=== PATIENT | female | born 1945 | race African-American/Black ===

== ENCOUNTER → 2016-10-15 | Outpatient (CLI) | payer MEDICARE, OTHER ==
[~2016-10-15] VITALS: Ht 152.4 cm; Wt 65.0 kg
[~2016-10-15] MED LIST: ALBU8HFA IH; ATOR20TA86 PO; BIMA12.5OS OU; CARV25 PO; DIGO250T73 PO; FURO40 PO; GLIP10TA9 PO; LETR2.5 PO; LISI-662 PO; METF850T2 PO; OMEP20 PO; POTA10TA10 PO; TIOT185 IH
[2016-10-15 11:16] VITALS: BP 149/70
== END | disposition home or self-care (01) ==
LOC: SRCNTR 11:11
PROVIDERS: ATTEND Internal Medicine Cardiovascular Disease
DX: I12.9 Hypertensive chronic kidney disease with stage 1 through stage 4 chronic kidney disease, or unspecified chronic kidney disease (principal); N18.3 Chronic kidney disease, stage 3 (moderate); E11.9 Type 2 diabetes mellitus without complications; E78.5 Hyperlipidemia, unspecified; I42.0 Dilated cardiomyopathy; Z85.3 Personal history of malignant neoplasm of breast
CPT/HCPCS: 93005; G0463

== ENCOUNTER → 2016-10-25 | Outpatient (CLI) | payer MEDICARE, OTHER | END | disposition home or self-care (01) | LOC: RADPV 09:33 | PROVIDERS: ATTEND Internal Medicine Cardiovascular Disease | DX: I42.9 Cardiomyopathy, unspecified (principal) | CPT/HCPCS: 93306 ==

== ENCOUNTER → 2016-12-14 | Outpatient (CLI) | payer MEDICARE, OTHER ==
[~2016-12-14] VITALS: Ht 152.4 cm; Wt 65.0 kg
[2016-12-14 11:20] VITALS: BP 144/60
== END | disposition home or self-care (01) ==
LOC: SRCNTR 10:53
PROVIDERS: ATTEND Internal Medicine Cardiovascular Disease
DX: I12.9 Hypertensive chronic kidney disease with stage 1 through stage 4 chronic kidney disease, or unspecified chronic kidney disease (principal); N18.3 Chronic kidney disease, stage 3 (moderate); I42.0 Dilated cardiomyopathy; E11.9 Type 2 diabetes mellitus without complications; E78.5 Hyperlipidemia, unspecified; Z85.3 Personal history of malignant neoplasm of breast
CPT/HCPCS: G0463

== ENCOUNTER → 2017-02-13 | Outpatient (CLI) | payer MEDICARE, OTHER ==
[~2017-02-13] VITALS: Ht 154.9 cm; Wt 65.0 kg
[2017-02-13 10:50] VITALS: BP 137/77
== END | disposition home or self-care (01) ==
LOC: SRCNTR 10:38
PROVIDERS: ATTEND Internal Medicine Cardiovascular Disease
DX: J44.9 Chronic obstructive pulmonary disease, unspecified (principal); I12.9 Hypertensive chronic kidney disease with stage 1 through stage 4 chronic kidney disease, or unspecified chronic kidney disease; N18.3 Chronic kidney disease, stage 3 (moderate); E78.5 Hyperlipidemia, unspecified; E11.9 Type 2 diabetes mellitus without complications; I42.0 Dilated cardiomyopathy; Z85.3 Personal history of malignant neoplasm of breast
CPT/HCPCS: G0463

== ENCOUNTER → 2017-05-08 | Outpatient (CLI) | payer MEDICARE, OTHER ==
[~2017-05-08] VITALS: Ht 154.9 cm; Wt 64.0 kg
[~2017-05-08] MED LIST changes: +INFLUENZA VIRUS VACCINE QVS 2017-18 (3YR+)/PF 60 MCG/0.5 ML SYRINGE IM ONE
[2017-05-08 10:45] VITALS: BP 136/73
== END | disposition home or self-care (01) ==
LOC: SRCNTR 10:12
PROVIDERS: ATTEND Internal Medicine Cardiovascular Disease
DX: E11.22 Type 2 diabetes mellitus with diabetic chronic kidney disease (principal); I12.9 Hypertensive chronic kidney disease with stage 1 through stage 4 chronic kidney disease, or unspecified chronic kidney disease; N18.3 Chronic kidney disease, stage 3 (moderate); E78.5 Hyperlipidemia, unspecified; I42.0 Dilated cardiomyopathy; Z85.3 Personal history of malignant neoplasm of breast
CPT/HCPCS: 90471 ×2; 96372; G0463

== ENCOUNTER → 2017-07-17 | Outpatient (CLI) | payer MEDICARE, OTHER ==
[~2017-07-17] VITALS: Ht 154.9 cm; Wt 63.5 kg
[~2017-07-17] MED LIST changes: -INFLUENZA VIRUS VACCINE QVS 2017-18 (3YR+)/PF 60 MCG/0.5 ML SYRINGE IM ONE; -LETR2.5 PO
[2017-07-17 10:33] VITALS: BP 126/61
== END | disposition home or self-care (01) ==
LOC: SRCNTR 10:30
PROVIDERS: ATTEND Internal Medicine Cardiovascular Disease
DX: I13.0 Hypertensive heart and chronic kidney disease with heart failure and stage 1 through stage 4 chronic kidney disease, or unspecified chronic kidney disease (principal); E11.22 Type 2 diabetes mellitus with diabetic chronic kidney disease; N18.3 Chronic kidney disease, stage 3 (moderate); E78.5 Hyperlipidemia, unspecified; I42.0 Dilated cardiomyopathy; Z85.3 Personal history of malignant neoplasm of breast
CPT/HCPCS: G0463

== ENCOUNTER → 2017-09-16 | Outpatient (CLI) | payer MEDICARE, OTHER ==
[~2017-09-16] VITALS: Ht 154.9 cm; Wt 64.5 kg
[2017-09-16 11:00] VITALS: BP 141/73
== END | disposition home or self-care (01) ==
LOC: SRCNTR 10:53
PROVIDERS: ATTEND Internal Medicine Cardiovascular Disease
DX: I12.9 Hypertensive chronic kidney disease with stage 1 through stage 4 chronic kidney disease, or unspecified chronic kidney disease (principal); E11.22 Type 2 diabetes mellitus with diabetic chronic kidney disease; N18.3 Chronic kidney disease, stage 3 (moderate); E78.5 Hyperlipidemia, unspecified; I42.0 Dilated cardiomyopathy; Z79.84 Long term (current) use of oral hypoglycemic drugs; Z85.3 Personal history of malignant neoplasm of breast
CPT/HCPCS: G0463

== ENCOUNTER 2017-10-17 12:03 | Emergency (ER) | payer MEDICARE, OTHER ==
[~2017-10-17] VITALS: Ht 154.9 cm; Wt 65.0 kg
[2017-10-17 12:17] LABS: GLUCOSE,POINT OF CARE 218 MG/DL (70-110)
[2017-10-17] MEDS ORDERED: IBUPROFEN 600 MG TABLET PO ONE (13:30)
[2017-10-17] MEDS ORDERED: HYDROCODONE/ACETAMINOPHEN 5-325 MG TABLET PO ONE (13:30)
[2017-10-17 14:14] LABS: BASOPHILS % (AUTO) 0.4 % (0.0-2.0); EOSINOPHILS % (AUTO) 0.1 % (1.0-6.0); HEMATOCRIT 31.2 % (36-46); HEMOGLOBIN 10.4 g/dL (12.0-16.0); LYMPHOCYTES # (AUTO) 1.8 K/uL (1.0-4.8); MEAN CORPUSCULAR HEMOGLOBIN 29.8 pg (26.0-34.0); MEAN CORPUSCULAR HGB CONC 33.5 G/dL (31.0-37.0); MEAN CORPUSCULAR VOLUME 89 fL (80-100); MONOCYTES # (AUTO) 0.8 K/uL (0.1-1.0); MONOCYTES % (AUTO) 7.5 % (2.0-9.0); NEUTROPHILS # (AUTO) 8.1 K/uL (1.8-7.7); RED BLOOD CELL COUNT(AUTO) 3.51 MIL/uL (4.00-5.20); RED CELL DISTRIBUTION WIDTH 14.1 % (11.5-14.5)
[2017-10-17 14:26] LABS: ANION GAP 14 mmol/L (8-16); CALCIUM, TOTAL 8.8 mg/dL (8.8-10.5); CARBON DIOXIDE 23 mmol/L (22-29); CHLORIDE 101 mmol/L (98-107); CREATININE 1.57 mg/dL (0.60-1.30); GLOMERULAR FILTR. RATE CALC 39 mL/min (>60); GLUCOSE,RANDOM 250 mg/dL (70-110); POTASSIUM 4.1 mmol/L (3.5-5.1); SODIUM SERUM 138 mmol/L (136-145); UREA NITROGEN, BLOOD 35 mg/dL (7-18)
[2017-10-17 14:29] LABS: B-TYPE NATRIURETIC PEPTIDE 270 pg/mL (0-100)
[2017-10-17 14:47] LABS: PLATELET COUNT (AUTO) 100 K/uL (150-450)
[2017-10-17 14:48] LABS: C-REACTIVE PROTEIN QUANT 4.73 mg/dL (0.00-0.30)
[2017-10-17 14:50] LABS: ALANINE AMINOTRANSFERASE 27 U/L (12-78); ALBUMIN 3.5 g/dL (3.4-5.0); ALKALINE PHOSPHATASE 82 U/L (46-116); ASPARTATE AMINOTRANSFERASE 18 U/L (15-37); CREATINE KINASE MB < 0.5 ng/mL (0-5); CREATINE KINASE, TOTAL 118 U/L (26-192); TOTAL PROTEIN, SERUM 7.4 g/dL (6.4-8.2); URIC ACID 11.5 mg/dL (2.6-7.2)
[2017-10-17 15:10] VITALS: BP 130/80
[2017-10-17 15:39] LABS: APPEARANCE,URINE CLEAR (CLEAR); BILIRUBIN,URINE NEGATIVE (NEGATIVE); GLUCOSE, URINE (UA) NEGATIVE (NEGATIVE); KETONES,URINE NEGATIVE (NEGATIVE); LEUKOCYTE ESTERASE ,URINE NEGATIVE (NEGATIVE); NITRATE,URINE NEGATIVE (NEGATIVE); OCCULT BLOOD,URINE NEGATIVE (NEGATIVE); PROTEIN,URINE NEGATIVE (NEGATIVE); UROBILINOGEN,URINE 0.2 mg/dL (<=1.0)
== END 2017-10-17 16:31 | disposition home or self-care (01) ==
LOC: EMS 12:04
DX: M17.11 Unilateral primary osteoarthritis, right knee (principal); E79.0 Hyperuricemia without signs of inflammatory arthritis and tophaceous disease; D64.9 Anemia, unspecified; N19 Unspecified kidney failure; I11.0 Hypertensive heart disease with heart failure; I50.9 Heart failure, unspecified; E11.9 Type 2 diabetes mellitus without complications
CPT/HCPCS: 82962; 84550; 86140; 93005; 99285

== ENCOUNTER → 2017-11-18 | Outpatient (CLI) | payer MEDICARE, OTHER ==
[~2017-11-18] VITALS: Ht 154.9 cm; Wt 62.0 kg
[~2017-11-18] MED LIST changes: -BIMA12.5OS OU
[2017-11-18 10:33] VITALS: BP 142/81
== END | disposition home or self-care (01) ==
LOC: SRCNTR 10:28
PROVIDERS: ATTEND Internal Medicine Cardiovascular Disease
DX: I12.9 Hypertensive chronic kidney disease with stage 1 through stage 4 chronic kidney disease, or unspecified chronic kidney disease (principal); E11.22 Type 2 diabetes mellitus with diabetic chronic kidney disease; N18.3 Chronic kidney disease, stage 3 (moderate); I42.9 Cardiomyopathy, unspecified; E78.5 Hyperlipidemia, unspecified; M10.9 Gout, unspecified; Z79.84 Long term (current) use of oral hypoglycemic drugs; Z85.3 Personal history of malignant neoplasm of breast; M19.90 Unspecified osteoarthritis, unspecified site
CPT/HCPCS: G0463

== ENCOUNTER → 2018-02-05 | Outpatient (CLI) | payer MEDICARE, OTHER ==
[~2018-02-05] VITALS: Ht 154.9 cm; Wt 61.0 kg
[2018-02-05 10:19] VITALS: BP 143/70
== END | disposition home or self-care (01) ==
LOC: SRCNTR 10:16
PROVIDERS: ATTEND Internal Medicine Cardiovascular Disease
DX: I13.0 Hypertensive heart and chronic kidney disease with heart failure and stage 1 through stage 4 chronic kidney disease, or unspecified chronic kidney disease (principal); E11.22 Type 2 diabetes mellitus with diabetic chronic kidney disease; N18.3 Chronic kidney disease, stage 3 (moderate); I50.9 Heart failure, unspecified; E78.5 Hyperlipidemia, unspecified; I42.0 Dilated cardiomyopathy; Z85.3 Personal history of malignant neoplasm of breast
CPT/HCPCS: G0463

== ENCOUNTER 2018-06-19 17:17 | Inpatient (IN) | payer MEDICARE, OTHER ==
[~2018-06-19] VITALS: Ht 154.9 cm; Wt 60.1 kg
[~2018-06-19 17:17] MED LIST changes: +METF-445 PO; -METF850T2 PO
[2018-06-19 17:38] LABS: GLUCOSE,POINT OF CARE 236 MG/DL (70-110)
[2018-06-19 18:17] LABS: APPEARANCE,URINE CLEAR (CLEAR); BILIRUBIN,URINE NEGATIVE (NEGATIVE); GLUCOSE, URINE (UA) NEGATIVE (NEGATIVE); KETONES,URINE NEGATIVE (NEGATIVE); LEUKOCYTE ESTERASE ,URINE TRACE (NEGATIVE); NITRATE,URINE NEGATIVE (NEGATIVE); OCCULT BLOOD,URINE NEGATIVE (NEGATIVE); PH,URINE 5.5 (5.0-8.0); PROTEIN,URINE NEGATIVE (NEGATIVE)
[2018-06-19 18:27] LABS: BASOPHILS % (AUTO) 0.7 % (0.0-2.0); EOSINOPHILS % (AUTO) 1.1 % (1.0-6.0); HEMATOCRIT 33.8 % (36-46); HEMOGLOBIN 11.1 g/dL (12.0-16.0); LYMPHOCYTES # (AUTO) 1.8 K/uL (1.0-4.8); LYMPHOCYTES % (AUTO) 23.7 % (22.0-44.0); MEAN CORPUSCULAR HEMOGLOBIN 29.3 pg (26.0-34.0); MEAN CORPUSCULAR HGB CONC 32.8 G/dL (31.0-37.0); MEAN CORPUSCULAR VOLUME 89 fL (80-100); MONOCYTES # (AUTO) 0.6 K/uL (0.1-1.0); MONOCYTES % (AUTO) 8.3 % (2.0-9.0); NEUTROPHILS % (AUTO) 66.2 % (40.0-70.0); PLATELET COUNT (AUTO) 191 K/uL (150-450); RED BLOOD CELL COUNT(AUTO) 3.79 MIL/uL (4.00-5.20); RED CELL DISTRIBUTION WIDTH 14.9 % (11.5-14.5)
[2018-06-19 18:46] LABS: CALCIUM, TOTAL 9.5 mg/dL (8.8-10.5); CREATININE 1.68 mg/dL (0.60-1.30); POTASSIUM 4.8 mmol/L (3.5-5.1)
[2018-06-19 18:48] LABS: INR 0.9 (0.9-1.1); PROTHROMBIN TIME 9.7 SEC (9.4-11.6)
[2018-06-19 18:49] LABS: BACTERIA,URINE Few /HPF (None Seen); RBC,URINE None Seen /HPF (0-2); SQUAMOUS EPITHELIAL CELL,UR Moderate /LPF (None Seen)
[2018-06-19 18:54] LABS: ALBUMIN 3.3 g/dL (3.4-5.0); BILIRUBIN,TOTAL 0.5 mg/dL (0.1-1.0); DIGOXIN 1.82 ng/mL (0.90-2.00)
[2018-06-19] MEDS ORDERED: SODIUM CHLORIDE 0.9% 100 ML ONE (20:28)
[2018-06-19] MEDS ORDERED: IOVERSOL 350 MG/ML 100 ML VIAL ONE (20:28)
[2018-06-19] MEDS ORDERED: AZITHROMYCIN 500 MG/NS 250 ML IV ONE (21:00)
[2018-06-19] MEDS ORDERED: CefTRIAXone SODIUM 1 GM in DEXTROSE 5%-WATER 10 ML IV ONE (21:00)
[2018-06-19] MEDS ORDERED: ACETAMINOPHEN 325 MG TABLET PO PRN (23:15)
[2018-06-19] MEDS ORDERED: 0.9% SODIUM CHLORIDE 10 ML SYRINGE IVP PRN (23:15)
[2018-06-19 23:50] VITALS: BP 155/81
[2018-06-20] MEDS ORDERED: DEXTROSE 50%-WATER 25 GM/50 ML SYG IVP PRN (01:45)
[2018-06-20] MEDS ORDERED: INSULIN LISPRO 100 UNITS/ML SQ PRN (01:45)
[2018-06-20] MEDS ORDERED: ALBUTEROL SULFATE 2.5 MG/0.5 ML NEB SOLUTION NEB PRN (01:45)
[2018-06-20] MEDS ORDERED: GLUCAGON,HUMAN RECOMBINANT 1 MG VIAL IM PRN (01:45)
[2018-06-20] MEDS: ALBUTEROL SULFATE 2.5 MG/0.5 ML NEB SOLUTION NEB SCH ×4 (02:00→19:57)
[2018-06-20] MEDS: IPRATROPIUM BROMIDE 0.5 MG/2.5 ML NEB SOLUTION NEB SCH ×4 (02:00→19:57)
[2018-06-20 04:19] VITALS: BP 115/57
[2018-06-20 05:48] LABS: BASOPHILS % (AUTO) 1.1 % (0.0-2.0); EOSINOPHILS % (AUTO) 2.1 % (1.0-6.0); HEMATOCRIT 31.6 % (36-46); HEMOGLOBIN 10.7 g/dL (12.0-16.0); LYMPHOCYTES # (AUTO) 2.1 K/uL (1.0-4.8); LYMPHOCYTES % (AUTO) 34.1 % (22.0-44.0); MEAN CORPUSCULAR HEMOGLOBIN 29.5 pg (26.0-34.0); MEAN CORPUSCULAR HGB CONC 33.8 G/dL (31.0-37.0); MEAN CORPUSCULAR VOLUME 87 fL (80-100); MONOCYTES # (AUTO) 0.7 K/uL (0.1-1.0); MONOCYTES % (AUTO) 11.5 % (2.0-9.0); NEUTROPHILS # (AUTO) 3.2 K/uL (1.8-7.7); NEUTROPHILS % (AUTO) 51.2 % (40.0-70.0); PLATELET COUNT (AUTO) 190 K/uL (150-450); RED BLOOD CELL COUNT(AUTO) 3.62 MIL/uL (4.00-5.20); RED CELL DISTRIBUTION WIDTH 15.1 % (11.5-14.5)
[2018-06-20 06:04] LABS: ALBUMIN 2.8 g/dL (3.4-5.0); BILIRUBIN,TOTAL 0.5 mg/dL (0.1-1.0); CREATININE 1.6 mg/dL (0.60-1.30); POTASSIUM 3.9 mmol/L (3.5-5.1); TOTAL PROTEIN, SERUM 7.2 g/dL (6.4-8.2)
[2018-06-20 07:48] VITALS: BP 133/68
[2018-06-20 11:46] VITALS: BP 121/57
[2018-06-20] MEDS: INSULIN LISPRO 100 UNITS/ML SQ PRN ×2 (12:22→21:32)
[2018-06-20 15:42] VITALS: BP 127/65
[2018-06-20 16:59] LABS: SPECIMENTYPE,BODY FLUID PLEURAL
[2018-06-20] MEDS: IBUPROFEN 400 MG TABLET PO PRN ×2 (17:26→23:14)
[2018-06-20 19:45] VITALS: BP 122/65
[2018-06-20 20:56] LABS: GLUCOMETER DEV NAME(LOC) 5S 1N; GLUCOSE,POINT OF CARE 140 MG/DL (70-110)
[2018-06-20 20:57] LABS: GLUCOMETER DEV NAME(LOC) 5S 1N; GLUCOSE,POINT OF CARE 208 MG/DL (70-110)
[2018-06-20 21:28] LABS: APPEARANCE,SPUN,BODY FLUID HAZY (CLEAR); APPEARANCE,UNSPUN,BODY FLUID CLOUDY (CLEAR); COLOR,BODY FLUID YELLOW (LT YELLOW); TOTAL VOLUME,BODY FLUID 250 mL
[2018-06-20] MEDS: CefTRIAXone SODIUM 1 GM in DEXTROSE 5%-WATER 10 ML IV SCH (21:30)
[2018-06-20 21:34] LABS: NEUTROPHILS,BODY FLUID 4 %; WBC, BODY FLUID 2305 /cu. mm.
[2018-06-20 21:35] LABS: BASOPHILS,BODY FLUID 0 %; EOSINOPHILS,BF (ANAL) 0 %
[2018-06-20] MEDS ORDERED: SODIUM CHLORIDE 0.9% 250 ML IV ONE (21:38)
[2018-06-20] MEDS: AZITHROMYCIN 500 MG/NS 250 ML IV SCH (21:39)
[2018-06-20 21:41] LABS: LYMPHOCYTES,BODY FLUID 85 %; MONOCYTES,BODY FLUID 7 %
[2018-06-20 21:43] LABS: OTHER CELLS,BODY FLUID MACROPHAGES
[2018-06-20 23:51] VITALS: BP 141/78
[2018-06-21] MEDS: ALBUTEROL SULFATE 2.5 MG/0.5 ML NEB SOLUTION NEB SCH ×4 (01:52→19:51)
[2018-06-21] MEDS: IPRATROPIUM BROMIDE 0.5 MG/2.5 ML NEB SOLUTION NEB SCH ×4 (01:52→19:51)
[2018-06-21 04:34] VITALS: BP 137/72
[2018-06-21] MEDS: INSULIN LISPRO 100 UNITS/ML SQ PRN ×4 (06:22→20:50)
[2018-06-21 06:23] LABS: GLUCOMETER DEV NAME(LOC) 5S 2R; GLUCOSE,POINT OF CARE 231 MG/DL (70-110)
[2018-06-21 06:23] LABS: GLUCOMETER DEV NAME(LOC) 5S 2R; GLUCOSE,POINT OF CARE 154 MG/DL (70-110)
[2018-06-21 06:24] LABS: GLUCOMETER DEV NAME(LOC) 5S 1N; GLUCOSE,POINT OF CARE 221 MG/DL (70-110)
[2018-06-21] MEDS: HEPARIN SODIUM,PORCINE 5,000 UNITS/ML VIAL SQ SCH ×2 (07:46→20:50)
[2018-06-21 08:13] VITALS: BP 164/95
[2018-06-21] MEDS: FUROSEMIDE 40 MG TABLET PO SCH (10:44)
[2018-06-21 11:49] VITALS: BP 134/56
[2018-06-21 15:46] VITALS: BP 133/62
[2018-06-21 20:18] VITALS: BP 157/89
[2018-06-21] MEDS: CefTRIAXone SODIUM 1 GM in DEXTROSE 5%-WATER 10 ML IV SCH (20:50)
[2018-06-21] MEDS: AZITHROMYCIN 500 MG/NS 250 ML IV SCH (20:50)
[2018-06-21 23:21] VITALS: BP 132/70
[2018-06-22] MEDS: IPRATROPIUM BROMIDE 0.5 MG/2.5 ML NEB SOLUTION NEB SCH ×3 (02:31→14:00)
[2018-06-22] MEDS: ALBUTEROL SULFATE 2.5 MG/0.5 ML NEB SOLUTION NEB SCH ×3 (02:32→14:00)
[2018-06-22 04:18] VITALS: BP 138/65
[2018-06-22] MEDS: IBUPROFEN 400 MG TABLET PO PRN (04:36)
[2018-06-22] MEDS: INSULIN LISPRO 100 UNITS/ML SQ PRN ×2 (06:15→11:50)
[2018-06-22 06:30] LABS: BASOPHILS % (AUTO) 0.5 % (0.0-2.0); EOSINOPHILS % (AUTO) 3.6 % (1.0-6.0); HEMATOCRIT 29.9 % (36-46); HEMOGLOBIN 10.1 g/dL (12.0-16.0); LYMPHOCYTES % (AUTO) 37.2 % (22.0-44.0); MEAN CORPUSCULAR HEMOGLOBIN 29.4 pg (26.0-34.0); MEAN CORPUSCULAR HGB CONC 33.9 G/dL (31.0-37.0); MEAN CORPUSCULAR VOLUME 87 fL (80-100); MONOCYTES # (AUTO) 0.5 K/uL (0.1-1.0); MONOCYTES % (AUTO) 9.8 % (2.0-9.0); NEUTROPHILS # (AUTO) 2.6 K/uL (1.8-7.7); NEUTROPHILS % (AUTO) 48.9 % (40.0-70.0); PLATELET COUNT (AUTO) 211 K/uL (150-450); RED BLOOD CELL COUNT(AUTO) 3.44 MIL/uL (4.00-5.20)
[2018-06-22 06:42] LABS: CALCIUM, TOTAL 8.6 mg/dL (8.8-10.5); CREATININE 1.54 mg/dL (0.60-1.30); POTASSIUM 3.8 mmol/L (3.5-5.1)
[2018-06-22 07:35] VITALS: BP 147/78
[2018-06-22] MEDS: FUROSEMIDE 40 MG TABLET PO SCH (08:40)
[2018-06-22] MEDS: HEPARIN SODIUM,PORCINE 5,000 UNITS/ML VIAL SQ SCH (08:43)
[2018-06-22 11:24] LABS: GLUCOMETER DEV NAME(LOC) 5S 1N; GLUCOSE,POINT OF CARE 178 MG/DL (70-110)
[2018-06-22 11:34] VITALS: BP 149/82
[2018-06-22] MEDS ORDERED: CARV12 PO (12:47)
[2018-06-22] MEDS ORDERED: LISI-662 PO (12:48)
[2018-06-22] MEDS ORDERED: AMOX-426 PO (12:49)
[2018-06-22 13:48] LABS: GLUCOMETER DEV NAME(LOC) 5N 1P; GLUCOSE,POINT OF CARE 224 MG/DL (70-110)
[2018-06-25 00:59] LABS: GLUCOMETER DEV NAME(LOC) 5N 2S; GLUCOSE,POINT OF CARE 285 MG/DL (70-110)
[2018-06-25 00:59] LABS: GLUCOMETER DEV NAME(LOC) 5N 2S; GLUCOSE,POINT OF CARE 164 MG/DL (70-110)
[2018-06-25 00:59] LABS: GLUCOMETER DEV NAME(LOC) 5N 2S; GLUCOSE,POINT OF CARE 224 MG/DL (70-110)
== END 2018-06-22 16:20 | disposition home or self-care (01) | DRG 291 ==
LOC: EMS 17:19 → 5N 21:11
PROVIDERS: ADMIT Internal Medicine; ATTEND Internal Medicine
PROC: 0W9B3ZZ Drainage of Left Pleural Cavity, Percutaneous Approach (ICD-10-PCS; principal; 2018-06-20)
DX: I13.0 Hypertensive heart and chronic kidney disease with heart failure and stage 1 through stage 4 chronic kidney disease, or unspecified chronic kidney disease (principal); J18.9 Pneumonia, unspecified organism; I50.21 Acute systolic (congestive) heart failure; J90 Pleural effusion, not elsewhere classified; J44.0 Chronic obstructive pulmonary disease with (acute) lower respiratory infection; N17.9 Acute kidney failure, unspecified; H40.9 Unspecified glaucoma; N18.3 Chronic kidney disease, stage 3 (moderate); E11.22 Type 2 diabetes mellitus with diabetic chronic kidney disease; E78.00 Pure hypercholesterolemia, unspecified; Z85.3 Personal history of malignant neoplasm of breast; Z90.10 Acquired absence of unspecified breast and nipple
CPT/HCPCS: 32555; 71275; 76942; 82465; 82945; 83605; 83615; 83986; 84132; 84157; 87015; 87040; 87070; 87205; 87206; 89051; 93005; 93306; 94640; 96365; 96368; 97116; 97161; G0378; J0456; J0696; J1644; J7050; J7060

== ENCOUNTER → 2018-07-07 | Outpatient (CLI) | payer MEDICARE, OTHER ==
[~2018-07-07] VITALS: Ht 154.9 cm; Wt 59.5 kg
[~2018-07-07] MED LIST changes: +AMOX-426 PO; +CARV12 PO; -CARV25 PO; -DIGO250T73 PO; -FURO40 PO; -METF-445 PO; -POTA10TA10 PO
[2018-07-07 11:39] VITALS: BP 147/57
== END | disposition home or self-care (01) ==
LOC: SRCNTR 11:36
PROVIDERS: ATTEND Internal Medicine Cardiovascular Disease
DX: I13.0 Hypertensive heart and chronic kidney disease with heart failure and stage 1 through stage 4 chronic kidney disease, or unspecified chronic kidney disease (principal); E11.22 Type 2 diabetes mellitus with diabetic chronic kidney disease; N18.3 Chronic kidney disease, stage 3 (moderate); I50.9 Heart failure, unspecified; I42.9 Cardiomyopathy, unspecified; E78.5 Hyperlipidemia, unspecified; Z85.3 Personal history of malignant neoplasm of breast; J90 Pleural effusion, not elsewhere classified
CPT/HCPCS: G0463

== ENCOUNTER → 2018-10-22 | Outpatient (CLI) | payer MEDICARE, OTHER ==
[2018-10-22 13:58] LABS: BASOPHILS % (AUTO) 0.7 % (0.0-2.0); EOSINOPHILS % (AUTO) 0.6 % (1.0-6.0); HEMATOCRIT 28.5 % (36-46); LYMPHOCYTES # (AUTO) 1.3 K/uL (1.0-4.8); LYMPHOCYTES % (AUTO) 18.8 % (22.0-44.0); MEAN CORPUSCULAR HEMOGLOBIN 24.1 pg (26.0-34.0); MEAN CORPUSCULAR HGB CONC 31.7 G/dL (31.0-37.0); MEAN CORPUSCULAR VOLUME 76 fL (80-100); MONOCYTES # (AUTO) 0.5 K/uL (0.1-1.0); MONOCYTES % (AUTO) 6.9 % (2.0-9.0); NEUTROPHILS # (AUTO) 5.1 K/uL (1.8-7.7); PLATELET COUNT (AUTO) 289 K/uL (150-450); RED BLOOD CELL COUNT(AUTO) 3.75 MIL/uL (4.00-5.20); RED CELL DISTRIBUTION WIDTH 19.7 % (11.5-14.5)
[2018-10-22 14:18] LABS: ALBUMIN 2.6 g/dL (3.4-5.0); BILIRUBIN,TOTAL 0.6 mg/dL (0.1-1.0); CALCIUM, TOTAL 9.1 mg/dL (8.8-10.5); CREATININE 1.97 mg/dL (0.60-1.30); TOTAL PROTEIN, SERUM 7.6 g/dL (6.4-8.2)
== END | disposition home or self-care (01) ==
LOC: MSR 12:14
PROVIDERS: ATTEND Internal Medicine Cardiovascular Disease
DX: J90 Pleural effusion, not elsewhere classified (principal); I13.0 Hypertensive heart and chronic kidney disease with heart failure and stage 1 through stage 4 chronic kidney disease, or unspecified chronic kidney disease; E11.22 Type 2 diabetes mellitus with diabetic chronic kidney disease; N18.3 Chronic kidney disease, stage 3 (moderate); I50.9 Heart failure, unspecified
CPT/HCPCS: 93306

== ENCOUNTER → 2019-06-12 | Outpatient (CLI) | payer MEDICARE, OTHER ==
[~2019-06-12] VITALS: Ht 154.9 cm; Wt 53.0 kg
[~2019-06-12] MED LIST changes: -AMOX-426 PO; +BIMA12.5OS OU; -CARV12 PO; +CARV25 PO; +CARV6 PO; +DIGO125T84 PO; +FULV250D2 IM; +FURO40 PO; +KDUR10 PO; +LETR2.5 PO; +METF-960 PO; +PALB100C PO; +RIBO600T PO; +[UNRECOGNIZED DRUG - CODE] PO
[2019-06-12 10:23] VITALS: BP 137/68
== END | disposition home or self-care (01) ==
LOC: SRCNTR 10:22
PROVIDERS: ATTEND Internal Medicine Cardiovascular Disease
DX: I13.0 Hypertensive heart and chronic kidney disease with heart failure and stage 1 through stage 4 chronic kidney disease, or unspecified chronic kidney disease (principal); E11.22 Type 2 diabetes mellitus with diabetic chronic kidney disease; I50.9 Heart failure, unspecified; N18.3 Chronic kidney disease, stage 3 (moderate); J44.9 Chronic obstructive pulmonary disease, unspecified; E78.5 Hyperlipidemia, unspecified; D05.90 Unspecified type of carcinoma in situ of unspecified breast; Z79.84 Long term (current) use of oral hypoglycemic drugs; Z79.899 Other long term (current) drug therapy
CPT/HCPCS: G0463

== ENCOUNTER → 2019-07-16 | Outpatient (CLI) | payer MEDICARE, OTHER ==
[~2019-07-16] MED LIST changes: -CARV6 PO; -FULV250D2 IM; -RIBO600T PO; -[UNRECOGNIZED DRUG - CODE] PO
== END | disposition home or self-care (01) ==
LOC: RADPV 10:37
PROVIDERS: ATTEND Internal Medicine Cardiovascular Disease
DX: I08.8 Other rheumatic multiple valve diseases (principal); J90 Pleural effusion, not elsewhere classified; I11.0 Hypertensive heart disease with heart failure; I50.9 Heart failure, unspecified; M10.9 Gout, unspecified; E78.00 Pure hypercholesterolemia, unspecified; E11.42 Type 2 diabetes mellitus with diabetic polyneuropathy; Z85.3 Personal history of malignant neoplasm of breast
CPT/HCPCS: 93306

== ENCOUNTER → 2019-08-14 | Outpatient (CLI) | payer MEDICARE, OTHER ==
[~2019-08-14] VITALS: Ht 154.9 cm; Wt 54.0 kg
[~2019-08-14] MED LIST changes: +FULV250D2 IM; +RIBO600T PO
[2019-08-14 11:15] VITALS: BP 137/59
== END | disposition home or self-care (01) ==
LOC: SRCNTR 11:08
PROVIDERS: ATTEND Internal Medicine Cardiovascular Disease
DX: I10 Essential (primary) hypertension (principal); E11.9 Type 2 diabetes mellitus without complications; E78.5 Hyperlipidemia, unspecified; J44.9 Chronic obstructive pulmonary disease, unspecified
CPT/HCPCS: G0463

== ENCOUNTER → 2020-03-01 | Outpatient (CLI) | payer MEDICARE, OTHER ==
[~2020-03-01] MED LIST changes: -KDUR10 PO; -LETR2.5 PO; -PALB100C PO; +POTA-92 PO
== END | disposition home or self-care (01) ==
LOC: SRCNTR 14:26
PROVIDERS: ATTEND Internal Medicine Cardiovascular Disease
DX: I13.0 Hypertensive heart and chronic kidney disease with heart failure and stage 1 through stage 4 chronic kidney disease, or unspecified chronic kidney disease (principal); I50.9 Heart failure, unspecified; E11.22 Type 2 diabetes mellitus with diabetic chronic kidney disease; N18.3 Chronic kidney disease, stage 3 (moderate); C79.81 Secondary malignant neoplasm of breast; I42.9 Cardiomyopathy, unspecified; E78.5 Hyperlipidemia, unspecified
CPT/HCPCS: Q3014